=== PATIENT | male | born 1985 | race Caucasian/White ===

== ENCOUNTER → 2018-08-13 16:09 | Outpatient (CLI) | payer SELFPAY ==
[2018-08-06 14:03] VITALS: BMI 25.9
--- NOTE | 2018-08-13 16:23 | MRI_ITS ---
STUDY: MR PELVIS WITHOUT CONTRAST REASON FOR EXAM: Male, 33 years old. Right-sided groin pain for 4 months. TECHNIQUE: Standardized fat and water weighted pulse sequences were obtained in all 3 orthogonal planes. COMPARISON: Prior comparison studies are not available for review at this time. FINDINGS: Urinary bladder is very distended. There is no obvious dilated bowel or ascites. Normal visualized colon. Normal visualized prostate gland. There is no pelvic fluid. There is no pelvic mass lesion or lymphadenopathy. Normal visualized pelvic arteries. There is a small focus of abnormal signal within the right iliac wing near the right sacroiliac joint. This could represent sequela of mild right-sided sacroiliitis. The left sacroiliac joint is within normal limits. Bilateral hip joints are within normal limits. There is no evidence to suggest stress fracture. There is a small focus of abnormal signal within the anterior subarticular aspect of the right femoral head that measures approximately 5.4 mm in greatest dimension. This is bright T2 signal and decreased T1 signal. This may represent a small subarticular cyst or erosion possibly secondary to femoral acetabular impingement. There is abnormal signal within bilateral pubic bones and left inferior pubic ramus that may be the result of stress reaction and/or bone contusions. There is mild anterolisthesis at L5-S1 with probable spondylolysis of L5. Normal abdominal wall. MRI/Pelvis (Routine) IMPRESSION: 1. Grade 1 spondylolisthesis at L5-S1 secondary to spondylolysis of L5. 2. Possible small erosion at the right sacroiliac joint and possible sequela of sacroiliitis of the posterior right sacroiliac joint. 3. Abnormal signal within the anterior right femoral head may represent an additional erosion versus possible sequela of femoral acetabular impingement. 4. Abnormal signal within the pubic bones may be the result of bone contusions with possible stress reaction or fracture of the left inferior pubic ramus. Electronically Signed: Erica Carranza MD at 2:16 EST , Service support ,
== END ==
PROVIDERS: Family Provider Family Medicine; PCP Family Medicine; Referring Provider Family Medicine; Visit Provider Family Medicine
DX: S39.91XA Unspecified injury of abdomen, initial encounter (principal); X58.XXXA Exposure to other specified factors, initial encounter
CPT/HCPCS: 72195